=== PATIENT | male | born 1990 | race African-American/Black ===

== ENCOUNTER 2016-11-14 15:28 | Emergency (ER) | payer OTHER ==
[~2016-11-14] VITALS: Ht 175.3 cm; Wt 100.0 kg
[~2016-11-14 15:28] MED LIST: DOXY100T PO; LORTA5 PO
[2016-11-14 15:30] VITALS: BP 136/63; PULSE 75; RESP 14; TEMP 98; O2SAT 97
== END 2016-11-14 15:30 | disposition left against medical advice (07) ==
LOC: NED 15:30
DX: M25.562 Pain in left knee (principal); V43.52XA Car driver injured in collision with other type car in traffic accident, initial encounter; Y93.9 Activity, unspecified; Y92.9 Unspecified place or not applicable; Y99.9 Unspecified external cause status
CPT/HCPCS: 99281

== ENCOUNTER 2016-11-16 01:33 | Emergency (ER) | payer OTHER ==
[~2016-11-16] VITALS: Ht 175.3 cm; Wt 104.0 kg
[2016-11-16 01:35] VITALS: BP 133/82; PULSE 60; RESP 14; TEMP 97.8; O2SAT 95
== END 2016-11-16 02:29 | disposition left against medical advice (07) ==
LOC: NED 01:33
DX: M25.562 Pain in left knee (principal)
CPT/HCPCS: 99281

== ENCOUNTER 2016-11-18 12:58 | Emergency (ER) | payer OTHER ==
[~2016-11-18] VITALS: Ht 175.3 cm; Wt 104.5 kg
[2016-11-18 13:00] VITALS: BP 126/65; PULSE 60; RESP 14; TEMP 98.1; O2SAT 99
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
== END 2016-11-18 20:51 | disposition left against medical advice (07) ==
LOC: NEPB 12:58
DX: M25.562 Pain in left knee (principal)
CPT/HCPCS: 99281